=== PATIENT | male | born 1935 | race Caucasian/White ===

== ENCOUNTER 2018-05-08 05:41 | Inpatient (IN) | payer OTHER ==
[~2018-05-08] VITALS: Ht 177.8 cm; Wt 77.1 kg
[2018-05-08 05:41] VITALS: BP_SYST 190
[2018-05-08] MEDS ORDERED: NACL 0.9% 1,000 ML IV ONE (06:05)
[2018-05-08] MEDS ORDERED: cloNIDine HCL 0.1 MG TABLET PO ONE (07:00)
[2018-05-08 07:03] LABS: BASOPHILS # (AUTO) 0.3 K/uL (0.0-0.2); BASOPHILS % (AUTO) 3.2 % (0.0-2.0); EOSINOPHILS % (AUTO) 0.1 % (0.0-4.0); HEMATOCRIT 47.9 % (36-54); HEMOGLOBIN 15.9 g/dL (14.0-18.0); LYMPHOCYTES # (AUTO) 0.6 K/uL (1.0-5.5); LYMPHOCYTES % (AUTO) 6.8 % (20.5-51.5); MEAN CORPUSCULAR HEMOGLOBIN 32 pg (27-31); MEAN CORPUSCULAR HGB CONC 33 % (32-36); MEAN CORPUSCULAR VOLUME 97 fL (79.0-98.0); MONOCYTES # (AUTO) 0.5 K/uL (0.0-1.0); MONOCYTES % (AUTO) 6.2 % (1.7-9.3); NEUTROPHILS # (AUTO) 6.8 K/uL (1.8-7.7); NEUTROPHILS % (AUTO) 83.7 % (40.0-70.0); PLATELET COUNT (AUTO) 227 K/uL (130-430); RED BLOOD CELL COUNT(AUTO) 4.93 MIL/uL (4.2-6.2); RED CELL DISTRIBUTION WIDTH 15.1 % (9.0-15.0); WHITE BLOOD COUNT (AUTO) 8.2 K/uL (4.8-10.8)
[2018-05-08 07:12] LABS: ANION GAP 13 (5-15); CALCIUM 9.9 mg/dL (8.4-11.0); CHLORIDE 103 mmol/L (98-107); CREATININE 0.98 mg/dL (0.55-1.30); GLUCOSE 225 mg/dL (70-99); POTASSIUM 3.9 mmol/L (3.5-5.1); SODIUM SERUM 140 mmol/L (136-145); UREA NITROGEN, BLOOD 12 mg/dL (8-21)
[2018-05-08 07:17] LABS: ALANINE AMINOTRANSFERASE 34 U/L (12-78); ALBUMIN 3.8 g/dL (3.4-4.8); ALCOHOL, BLOOD 3 mg/dL (<10); ASPARTATE AMINOTRANSFERASE 29 U/L (10-37); LIPASE 141 U/L (73-393); PROTHROMBIN TIME 9.9 SECS (9.5-12.5); TOTAL BILIRUBIN 0.5 mg/dL (0.0-1.0)
[2018-05-08 10:16] VITALS: BP_SYST 166
[2018-05-08 12:02] VITALS: BP_SYST 143
[2018-05-08] MEDS ORDERED: GLUCOSE 15 GM GEL (in 37.5 GM TUBE) PO PRN ×2 (12:45)
[2018-05-08] MEDS ORDERED: DEXTROSE 50%-WATER 50 ML DISP.SYRIN IVP PRN ×2 (12:45)
[2018-05-08] MEDS ORDERED: ASPIRIN 81 MG TAB.CHEW PO ONE (13:15)
[2018-05-08 16:02] VITALS: BP_SYST 154
[2018-05-08] MEDS: INSULIN REGULAR, HUMAN 100 UNITS/ML, 10 ML VIAL (novoLIN R) SUBCUT PRN ×2 (17:43→20:52)
[2018-05-08] MEDS ORDERED: HYDR12.55 (18:41)
[2018-05-08] MEDS ORDERED: GABA-531 PO (18:41)
[2018-05-08] MEDS ORDERED: FINA5TAB3 PO (18:41)
[2018-05-08] MEDS ORDERED: EZET10TA27 PO (18:41)
[2018-05-08] MEDS ORDERED: METF500T7 PO (18:41)
[2018-05-08] MEDS ORDERED: SERT25TA PO (18:41)
[2018-05-08] MEDS ORDERED: DABI150C PO (18:41)
[2018-05-08] MEDS ORDERED: AMLO5TAB4 PO (18:41)
[2018-05-08] MEDS ORDERED: FOSI20TA4 PO (18:41)
[2018-05-08] MEDS ORDERED: SITA100T11 PO (18:41)
[2018-05-08] MEDS ORDERED: CARV25TA55 PO (18:41)
[2018-05-08] MEDS ORDERED: ATOR40TA68 PO (18:41)
[2018-05-08 19:00] VITALS: BP_SYST 161
[2018-05-08] MEDS ORDERED: THIAMINE HCL 100 MG TABLET GT ONE (19:15)
[2018-05-08 20:00] VITALS: BP_SYST 161
[2018-05-08] MEDS: CARVEDILOL 25 MG TABLET (COREG) PO SCH (20:46)
[2018-05-08] MEDS: EZETIMIBE 10 MG TABLET PO SCH (20:47)
[2018-05-08] MEDS: GABAPENTIN 300 MG CAPSULE PO SCH (20:47)
[2018-05-08] MEDS: ATORVASTATIN 20 MG TABLET PO SCH (20:47)
[2018-05-08] MEDS: DABIGATRAN ETEXILATE MESYLATE 75 MG CAPSULE PO SCH (20:48)
[2018-05-09] VITALS: BP_SYST 146
[2018-05-09] MEDS ORDERED: TEMAZEPAM 15 MG CAPSULE PO PRN (00:30)
[2018-05-09 08:30] VITALS: BP_SYST 133
[2018-05-09] MEDS: CARVEDILOL 25 MG TABLET (COREG) PO SCH ×2 (08:36→21:44)
[2018-05-09] MEDS: HYDROCHLOROTHIAZIDE 12.5 MG CAPSULE (HCTZ) PO SCH (08:36)
[2018-05-09] MEDS: DABIGATRAN ETEXILATE MESYLATE 75 MG CAPSULE PO SCH ×2 (08:36→21:47)
[2018-05-09] MEDS: FINASTERIDE 5 MG TABLET (PROSCAR) PO SCH (08:37)
[2018-05-09] MEDS: THIAMINE HCL 100 MG TABLET GT SCH (08:37)
[2018-05-09] MEDS: GABAPENTIN 300 MG CAPSULE PO SCH ×3 (08:37→21:44)
[2018-05-09] MEDS: LISINOPRIL 20 MG TABLET PO SCH (08:38)
[2018-05-09] MEDS: SERTRALINE HCL 50 MG TABLET PO SCH (08:38)
[2018-05-09] MEDS: amLODIPine BESYLATE 5 MG TABLET PO SCH (08:38)
[2018-05-09] MEDS ORDERED: NON-FORMULARY MEDICATION (Hydrochlorothiazide 12.5 MG) SCH (09:00)
[2018-05-09] MEDS: INSULIN REGULAR, HUMAN 100 UNITS/ML, 10 ML VIAL (novoLIN R) SUBCUT PRN ×2 (12:14→21:48)
[2018-05-09 12:15] VITALS: BP_SYST 125
[2018-05-09 17:38] VITALS: BP_SYST 107
[2018-05-09 19:52] VITALS: BP_SYST 132
[2018-05-09] MEDS: ATORVASTATIN 20 MG TABLET PO SCH (21:41)
[2018-05-09] MEDS: EZETIMIBE 10 MG TABLET PO SCH (21:44)
[2018-05-10] VITALS: BP_SYST 143
[2018-05-10 07:45] VITALS: BP_SYST 124
[2018-05-10] MEDS: GABAPENTIN 300 MG CAPSULE PO SCH ×3 (09:43→21:28)
[2018-05-10] MEDS: LISINOPRIL 20 MG TABLET PO SCH (09:43)
[2018-05-10] MEDS: HYDROCHLOROTHIAZIDE 12.5 MG CAPSULE (HCTZ) PO SCH (09:44)
[2018-05-10] MEDS: DABIGATRAN ETEXILATE MESYLATE 75 MG CAPSULE PO SCH ×2 (09:44→21:35)
[2018-05-10] MEDS: FINASTERIDE 5 MG TABLET (PROSCAR) PO SCH (09:44)
[2018-05-10] MEDS: CARVEDILOL 25 MG TABLET (COREG) PO SCH ×2 (09:46→21:27)
[2018-05-10] MEDS: amLODIPine BESYLATE 5 MG TABLET PO SCH (09:46)
[2018-05-10] MEDS: SERTRALINE HCL 50 MG TABLET PO SCH (09:46)
[2018-05-10] MEDS: THIAMINE HCL 100 MG TABLET GT SCH (09:47)
[2018-05-10 12:00] VITALS: BP_SYST 128
[2018-05-10] MEDS: INSULIN REGULAR, HUMAN 100 UNITS/ML, 10 ML VIAL (novoLIN R) SUBCUT PRN ×3 (12:04→21:33)
[2018-05-10 16:00] VITALS: BP_SYST 130
[2018-05-10 19:00] VITALS: BP_SYST 124
[2018-05-10 20:00] VITALS: BP_SYST 124
[2018-05-10] MEDS: ATORVASTATIN 20 MG TABLET PO SCH (21:27)
[2018-05-10] MEDS: EZETIMIBE 10 MG TABLET PO SCH (21:28)
[2018-05-11] VITALS: BP_SYST 122
[2018-05-11] MEDS ORDERED: ONDANSETRON HCL 4 MG/2 ML VIAL IM PRN (01:15)
[2018-05-11 08:00] VITALS: BP_SYST 146
[2018-05-11] MEDS: FINASTERIDE 5 MG TABLET (PROSCAR) PO SCH (08:58)
[2018-05-11] MEDS: HYDROCHLOROTHIAZIDE 12.5 MG CAPSULE (HCTZ) PO SCH (08:59)
[2018-05-11] MEDS: THIAMINE HCL 100 MG TABLET GT SCH (09:00)
[2018-05-11] MEDS: CARVEDILOL 25 MG TABLET (COREG) PO SCH (09:00)
[2018-05-11] MEDS: amLODIPine BESYLATE 5 MG TABLET PO SCH (09:01)
[2018-05-11] MEDS: GABAPENTIN 300 MG CAPSULE PO SCH ×2 (09:01→15:31)
[2018-05-11] MEDS: LISINOPRIL 20 MG TABLET PO SCH (09:01)
[2018-05-11] MEDS: SERTRALINE HCL 50 MG TABLET PO SCH (09:01)
[2018-05-11] MEDS: DABIGATRAN ETEXILATE MESYLATE 75 MG CAPSULE PO SCH (09:04)
[2018-05-11] MEDS: INSULIN REGULAR, HUMAN 100 UNITS/ML, 10 ML VIAL (novoLIN R) SUBCUT PRN ×2 (12:02→17:09)
[2018-05-11 16:00] VITALS: BP_SYST 119
[2018-05-11 16:03] VITALS: BP_SYST 119
== END 2018-05-11 18:30 | DRG 92 ==
LOC: SED 05:41 → STU 09:40
PROVIDERS: ADMIT Family Medicine; ATTEND Family Medicine
DX: G92 Toxic encephalopathy (principal); I67.4 Hypertensive encephalopathy; I10 Essential (primary) hypertension; E11.9 Type 2 diabetes mellitus without complications; M19.90 Unspecified osteoarthritis, unspecified site; Z95.2 Presence of prosthetic heart valve; Z95.0 Presence of cardiac pacemaker; Z82.49 Family history of ischemic heart disease and other diseases of the circulatory system
CPT/HCPCS: 36415; 70450-TC; 71045; 80053; 82550-TC; 82962; 83605; 83690-TC; 84484; 85025; 85610-TC; 85730-TC; 87040-TC; 93005; 95816; 97110-GP; 97116-GP; 97530-GP; 99285; G0378; G0482; J7030

== ENCOUNTER 2018-08-31 07:42 | Inpatient (IN) | payer OTHER ==
[~2018-08-31] VITALS: Ht 177.8 cm; Wt 79.4 kg
[2018-08-31] VITALS (13 sets, daily range): BP systolic 121–185
[~2018-08-31 07:42] MED LIST: AMLO5TAB4 PO; ATOR40TA68 PO; CARV25TA55 PO; DABI150C PO; EZET10TA27 PO; FINA5TAB3 PO; FOSI20TA98 PO; GABA-531 PO; HYDR12.55; METF500T7 PO; SERT25TA PO; SITA100T11 PO
--- NOTE | 2018-08-31 07:45 | NUR ---
Placed in room 6 . Placed on cardiac rehab nurse, blood pressure machine and pulse oximeter. To gown for exam. Side rails up. Report given to ARGENIS Patiño.
--- NOTE | 2018-08-31 07:45 | NUR ---
patient arrived AOx3-4 from home with adult children. patient c/o generalized weakness x 1 day. patient denies a reason for generalied weakness. adult child patient lives with states they moved to [facility] ages ago and the patient hasn't taken medication corrently the last few weeks. adult child is unware of which medication patient takes, when or how he is taking them. patient has a hx of dm, htn and past history of pacemaker and WI. Patient denies any other complaint or injury at this time. no other complaint or injury.
--- NOTE | 2018-08-31 08:00 | NUR ---
ER at bedside examining patient.
[2018-08-31 08:43] LABS: ANION GAP 17 (5-15); CALCIUM 9.6 mg/dL (8.4-11.0); CHLORIDE 100 mmol/L (98-107); CREATININE 1.25 mg/dL (0.55-1.30); GLUCOSE 213 mg/dL (70-99); POTASSIUM 3.5 mmol/L (3.5-5.1); SODIUM SERUM 138 mmol/L (136-145); UREA NITROGEN, BLOOD 15 mg/dL (8-21)
[2018-08-31 08:44] LABS: BASOPHILS # (AUTO) 0.1 K/uL (0.0-0.2); BASOPHILS % (AUTO) 0.9 % (0.0-2.0); EOSINOPHILS % (AUTO) 0.3 % (0.0-4.0); HEMATOCRIT 45.3 % (36-54); HEMOGLOBIN 15.2 g/dL (14.0-18.0); LYMPHOCYTES # (AUTO) 1.2 K/uL (1.0-5.5); LYMPHOCYTES % (AUTO) 19.3 % (20.5-51.5); MEAN CORPUSCULAR HEMOGLOBIN 33 pg (27-31); MEAN CORPUSCULAR HGB CONC 34 % (32-36); MEAN CORPUSCULAR VOLUME 99 fL (79.0-98.0); MONOCYTES # (AUTO) 0.6 K/uL (0.0-1.0); MONOCYTES % (AUTO) 9.8 % (1.7-9.3); NEUTROPHILS # (AUTO) 4.4 K/uL (1.8-7.7); NEUTROPHILS % (AUTO) 69.7 % (40.0-70.0); PLATELET COUNT (AUTO) 161 K/uL (130-430); RED BLOOD CELL COUNT(AUTO) 4.57 MIL/uL (4.2-6.2); RED CELL DISTRIBUTION WIDTH 14.9 % (9.0-15.0); WHITE BLOOD COUNT (AUTO) 6.3 K/uL (4.8-10.8)
[2018-08-31 08:45] LABS: PROTHROMBIN TIME 10.2 SECS (9.5-12.5)
[2018-08-31] MEDS ORDERED: NACL 0.9% 1,000 ML IV ONE ×2 (08:45→10:00)
[2018-08-31 08:56] LABS: ALANINE AMINOTRANSFERASE 35 U/L (12-78); ALBUMIN 3.3 g/dL (3.4-4.8); ASPARTATE AMINOTRANSFERASE 29 U/L (10-37); TOTAL BILIRUBIN 1.6 mg/dL (0.0-1.0)
[2018-08-31 09:17] LABS: BILIRUBIN,URINE 2+ (NEGATIVE); BLOOD, URINE 3+ (NEGATIVE); COLOR,URINE YELLOW (YELLOW); GLUCOSE,URINE TRACE (NEGATIVE); KETONES,URINE 1+ (NEGATIVE); LEUKOCYTE ESTERASE ,URINE NEGATIVE (NEGATIVE); NITRITE, URINE NEGATIVE (NEGATIVE); PH,URINE 5.5 (5.0-8.0); PROTEIN URINE 3+ (NEGATIVE)
[2018-08-31 09:18] LABS: CLARITY/URINE HAZY (CLEAR)
--- NOTE | 2018-08-31 09:25 | NUR ---
Medication reconciliation completed with information provided by Family member. Any prior medication reconciliation on file was reviewed and corrected.
[2018-08-31 09:29] LABS: BACTERIA,URINE FEW /HPF (None Seen); MUCUS,URINE 1+ /LPF (None Seen); URINE AMORPHOUS URATE 2+ /HPF (None Seen); WBC,URINE 0-3 /HPF (0-3)
[2018-08-31] MEDS ORDERED: cefTRIAXone 1 GM IVPB PREMIX 50 ML IV ONE (09:45)
--- NOTE | 2018-08-31 10:54 | NUR ---
attempted to get consent for contrast, sent to voicemail. will endorce to floor nurse.
--- NOTE | 2018-08-31 10:59 | NUR ---
consent provided over the phone.
--- NOTE | 2018-08-31 11:00 | NUR ---
patient sent to CT for CTA scan.
[2018-08-31] MEDS ORDERED: VANCOMYCIN HCL 1,000 MG in NS 250 ML IV ONE (11:15)
--- NOTE | 2018-08-31 11:30 | NUR ---
patient returned from CTA in stable condition.
[2018-08-31] MEDS ORDERED: amLODIPine BESYLATE 5 MG TABLET PO ONE (12:00)
[2018-08-31] MEDS ORDERED: DOCUSATE SODIUM 100 MG CAPSULE PO ONE (12:00)
[2018-08-31] MEDS ORDERED: NITROGLYCERIN 0.4 MG TAB.SUBL SL ONE (12:00)
[2018-08-31] MEDS ORDERED: ACETAMINOPHEN 325 MG TABLET PO PRN (12:00)
--- NOTE | 2018-08-31 12:00 | NUR ---
Patient will be admitted to [facility]. Admitted to ICU unit. Will go to room 4. Belongings list completed. Summary report printed. Report will be given at bedside.
[2018-08-31] MEDS ORDERED: VANCOMYCIN HCL 1000 MG/VIAL IV ONE (12:34)
--- NOTE | 2018-08-31 12:45 | NUR ---
RECEIVED PT IN ICU 4 RECEIVED SBAR REPORT AT BEDSIDE FROM ENDORSING ER NURSE. PT AWAKE, ALERT AND ORIENTED WITH NO COMPLAINT OF PAIN OR SOB. PT IS COOPERATIVE BY A SOMEWHAT POOR HISTORIAN, SLIGHT CONFUSION OBSERVED. 2 BED RAILS UP, CALL LIGHT WITHIN REACH.
[2018-08-31] MEDS ORDERED: NITROGLYCERIN 0.4 MG TAB.SUBL SL PRN (13:15)
--- NOTE | 2018-08-31 14:15 | NUR ---
CONSULT: DR. ALEX CARDIOLOGY EXCHANGE CALLED FOR CONSULT, DR. CAZARES IS COVERING FOR DR. ALEX. SPOKE TO ANABELLE (EXCHANGE)
[2018-08-31] MEDS ORDERED: cloNIDine HCL 0.1 MG TABLET PO PRN (15:00)
--- NOTE | 2018-08-31 15:16 | NUR ---
CARDIO CONSULT CONFIRMED DR. CAZARES RETURNED CALL AND ACCEPTED PATIENT. NEW ORDERS RECEIVED.
--- NOTE | 2018-08-31 15:30 | NUR ---
DR. JESSICA AT BEDSIDE NEW ORDERS RECEIVED.
--- NOTE | 2018-08-31 17:45 | NUR ---
DR. CAZARES AT BEDSIDE NEW ORDERS RECEIVED
[2018-08-31] MEDS ORDERED: metFORMIN HCL 500 MG TABLET PO SCH (18:00)
[2018-08-31] MEDS ORDERED: ASPIRIN 81 MG TABLET(ECOTRIN) PO SCH (18:30)
--- NOTE | 2018-08-31 19:25 | NUR ---
ENDORSEMENT SBAR REPORT ENDORSED TO RECEIVING RN AT BEDSIDE.
--- NOTE | 2018-08-31 19:30 | NUR ---
PERSONNEL FROM [facility] CAME TO CHECK ON PACEMAKER AND PRINT SOME HISTORY. [employer] TALKED TO DR CAZARES AND REPORTED HIS FINDINGS.
--- NOTE | 2018-08-31 20:00 | NUR ---
AWAKE, ALERT, ORIENTED X3. IN NO APPARENT DISTRESS. DENIES PAIN. ON ROOM AIR. BREATH SOUNDS ESSENTIALLY CLEAR. BOWEL SOUNDS(+). PULSES PALPABLE. SKIN W/D. COLOR SATISFACTORY. HOB UP TO COMFORT. SIDE RAILS UP. CALL LIGHTS WITHIN REACH. DUAL CHAMBER PACEMAKER NOTED.
[2018-08-31] MEDS: CARVEDILOL 6.25 MG TABLET (COREG) PO SCH (20:40)
[2018-08-31] MEDS: TEMAZEPAM 15 MG CAPSULE PO PRN (20:40)
--- NOTE | 2018-08-31 20:40 | NUR ---
RESTORIL 15 MG PO GIVEN FOR SLEEP PER PT REQUEST.
[2018-08-31] MEDS: DABIGATRAN ETEXILATE MESYLATE 75 MG CAPSULE PO SCH (21:00)
--- NOTE | 2018-08-31 21:00 | NUR ---
ABLE TO SWALLOW WITHOUT DIFFICULTY. VOIDED URINE A WHILE AGO, UNABLE TO MEASURE.
[2018-08-31] MEDS ORDERED: DABIGATRAN ETEXILATE MESYLATE 75 MG CAPSULE PO ONE (21:06)
[2018-09-01] VITALS (19 sets, daily range): BP systolic 85–153
--- NOTE | 2018-09-01 | NUR ---
AWAKE. SLEPT FOR SHORT PERIODS OF TIME. VOIDED 200 CC CLEAR JORDEN URINE VIA URINAL. INQUISITIVE. QUESTIONS ANSWERED. CONVERSANT.
--- NOTE | 2018-09-01 02:00 | NUR ---
SOUNDLY ASLEEP. NO DISTRESS NOTED. ABLE TO REPOSITION SELF WELL.
--- NOTE | 2018-09-01 04:00 | NUR ---
SLEPT INTERMITTENTLY. 0 DISTRESS.
[2018-09-01 04:46] LABS: BASOPHILS % (AUTO) 0.9 % (0.0-2.0); EOSINOPHILS # (AUTO) 0.1 K/uL (0.0-0.4); EOSINOPHILS % (AUTO) 1.5 % (0.0-4.0); HEMOGLOBIN 14.2 g/dL (14.0-18.0); LYMPHOCYTES # (AUTO) 0.8 K/uL (1.0-5.5); LYMPHOCYTES % (AUTO) 17.1 % (20.5-51.5); MEAN CORPUSCULAR HEMOGLOBIN 33 pg (27-31); MEAN CORPUSCULAR HGB CONC 34 % (32-36); MEAN CORPUSCULAR VOLUME 99 fL (79.0-98.0); MONOCYTES # (AUTO) 0.6 K/uL (0.0-1.0); NEUTROPHILS # (AUTO) 3.1 K/uL (1.8-7.7); NEUTROPHILS % (AUTO) 68.5 % (40.0-70.0); PLATELET COUNT (AUTO) 134 K/uL (130-430); RED BLOOD CELL COUNT(AUTO) 4.25 MIL/uL (4.2-6.2); RED CELL DISTRIBUTION WIDTH 14.8 % (9.0-15.0); WHITE BLOOD COUNT (AUTO) 4.6 K/uL (4.8-10.8)
[2018-09-01 05:05] LABS: ALANINE AMINOTRANSFERASE 33 U/L (12-78); ALBUMIN 2.7 g/dL (3.4-4.8); ANION GAP 11 (5-15); ASPARTATE AMINOTRANSFERASE 27 U/L (10-37); CALCIUM 8.8 mg/dL (8.4-11.0); CHLORIDE 100 mmol/L (98-107); CREATININE 0.87 mg/dL (0.55-1.30); GLUCOSE 168 mg/dL (70-99); POTASSIUM 3.4 mmol/L (3.5-5.1); SODIUM SERUM 134 mmol/L (136-145); TOTAL BILIRUBIN 1.2 mg/dL (0.0-1.0); UREA NITROGEN, BLOOD 13 mg/dL (8-21)
--- NOTE | 2018-09-01 06:00 | NUR ---
AWAKE. NO COMPLAINTS OFFERED AT THIS TIME. REMAINS IN GUARDED CONDITION.
--- NOTE | 2018-09-01 07:15 | NUR ---
Opening Note Received plan of care via sbar from endorsing nurse Maxwell RN. Made pt round.
[2018-09-01] MEDS: ATORVASTATIN 20 MG TABLET PO SCH (08:30)
--- NOTE | 2018-09-01 08:30 | NUR ---
Called Dr. Foley and left message with exchange regarding pt orders. Awaiting return call.
[2018-09-01] MEDS: DOCUSATE SODIUM 100 MG CAPSULE PO SCH (08:31)
[2018-09-01] MEDS: CARVEDILOL 6.25 MG TABLET (COREG) PO SCH ×2 (08:32→21:30)
[2018-09-01] MEDS: SERTRALINE HCL 50 MG TABLET PO SCH (08:32)
[2018-09-01] MEDS: amLODIPine BESYLATE 5 MG TABLET PO SCH (08:32)
[2018-09-01] MEDS: FINASTERIDE 5 MG TABLET (PROSCAR) PO SCH (09:17)
[2018-09-01] MEDS: DABIGATRAN ETEXILATE MESYLATE 75 MG CAPSULE PO SCH ×2 (09:18→21:30)
--- NOTE | 2018-09-01 10:15 | NUR ---
Completed CHG and linen change with patient with pt assistance. PT tolerated well without any complications or complaints.
[2018-09-01] MEDS ORDERED: POTASSIUM CHLORIDE 10 MEQ TAB.PRT.SR PO ONE (11:45)
[2018-09-01] MEDS: INSULIN REGULAR, HUMAN 100 UNITS/ML, 10 ML VIAL (novoLIN R) SUBCUT PRN (12:01)
--- NOTE | 2018-09-01 14:26 | NUR ---
Received MD order to downgrade pt to MST. Will provide continuous care until bed opens.
--- NOTE | 2018-09-01 16:00 | NUR ---
Transfer Note Gave plan of care to endorsing nurse Fidencio RN via sbar.
--- NOTE | 2018-09-01 16:12 | NUR ---
RN RECEIVING NOTE PATIENT WAS RECEIVED FROM ICU, PATIENT WAS ASSESSED, VITAL SIGNS ARE STABLE. PATIENT DENIES PAIN OR DISCOMFORT. PATIENT IS NONE TELE. BED AT LOW POSITION AND CALL LIGHT WITHIN REACH WILL CONTINUE TO MONITOR.
--- NOTE | 2018-09-01 18:30 | NUR ---
RN CLOSING NOTE PATIENT WAS TRANSFERED TO ANOTHER ROOM PER HIS REQUEST. PATIENT DENIES PAIN OR DISCOMFORT. PATIENT WAS SERVED HIS DINNER, BED AT LOW POSITION AND CALL LIGHT WITHIN REACH, WILL ENDORSE TO NEXT SHIFT.
--- NOTE | 2018-09-01 19:00 | NUR ---
change of shift.pt.transfer from icu unit.pt.presents quiescent affect;calm.pt.presents general status stable.respiratory status sstabl;e;@room air,.ileana;rn has apprised me and demonstrated the rt.foot;wound;involvement;1-2nd metatarsals ecchymosis.pt.presents iv acces;x2 locations.call light/telephone w/in the reach of the pt.
--- NOTE | 2018-09-01 20:00 | NUR ---
pt.assessed.v/s assessed;values w/in normal limits.pt.presents loc;confused.pt.presents garble;inappropriate speech/ answers to q's.pt.presents activity status;bedrest.pt.presents incontinent status;bladder/bowel.scd's applied.bilateral. i have apprised the pt.that snacks/beverages are available w/in the shift.pt.presents no requests@this hour.per flacc: pain mgx;pt.absent facial grimaces/body posturing.pt.assessed for cleanliness.pt.repositioned.call light/telephone placed w/in the reach of the pt.
--- NOTE | 2018-09-01 20:30 | NUR ---
i have assessed the blood glucose;144mg/dl value.
--- NOTE | 2018-09-01 21:00 | NUR ---
2100p medication administered.
[2018-09-01] MEDS: TEMAZEPAM 15 MG CAPSULE PO PRN (21:31)
--- NOTE | 2018-09-01 22:00 | NUR ---
py.assessed.pt.assessed for cleanliness.pt.repositioned.pt.presents quiescent affect;calm,somnolent.flacc method utilized; pain mgx. pt.absent facial grimaces/body posturing.no requests presented@this hour.general status stable.respiratory status stable. call light/telephone placed w/in the reach of the pt.s
--- NOTE | 2018-09-02 | NUR ---
pt.assessed.v/s assessed;values w/in normal limits.pt.assessed for cleanliness.pt.repositioned.no c/o pain,nausea. general status stable.respiratory status stable.call light/telephone placed w/in the reach of the pt.
[2018-09-02 01:45] VITALS: BP_SYST 132
--- NOTE | 2018-09-02 03:00 | NUR ---
the pt.presents ecchymosis;rt.foot;1-2nd metatarsals.antonietta salinas;leila has assisted w/the photographs. sacrum//buttocks assessed.back assessed absent wounds.lt.foot assessed absent skin integrity intact.
--- NOTE | 2018-09-02 04:00 | NUR ---
pt.assessed.pt.presents quiescent affect;calm,somnolent.pt.assessed for cleanliness.pt.cleaned.general status stable. respiratory status stable.call light/telephone placed w/in the reach of the pt.
[2018-09-02] MEDS: INSULIN REGULAR, HUMAN 100 UNITS/ML, 10 ML VIAL (novoLIN R) SUBCUT PRN ×3 (06:30→22:19)
--- NOTE | 2018-09-02 06:45 | NUR ---
pt.assessed.i have assisted the pt.w/the urinal.i have assessed the blood glucose:189mg/dl. i have administered regular insulin;2-units.pt.assessed for cleanliness.pt.repositioned.call light/ telephone paced w/in then reach of the pt.
--- NOTE | 2018-09-02 06:58 | NUR ---
Nutrition Update Miguelito Scale 14 noted. Pt admitted for chest pain, rule out angina vs myocardial infarction Diet: cardiac low CHOL low fat 2gm Na BMI: 25.1 kg/m2 RD to follow per nutrition care standards.
[2018-09-02 07:28] LABS: ANION GAP 21 (5-15); CALCIUM 9.7 mg/dL (8.4-11.0); CHLORIDE 102 mmol/L (98-107); CREATININE 0.99 mg/dL (0.55-1.30); GLUCOSE 165 mg/dL (70-99); POTASSIUM 3.8 mmol/L (3.5-5.1); SODIUM SERUM 138 mmol/L (136-145); UREA NITROGEN, BLOOD 20 mg/dL (8-21)
[2018-09-02 08:00] VITALS: BP_SYST 130
--- NOTE | 2018-09-02 08:00 | NUR ---
AWAKE BUT CONFUSED. IN NO APPARENT DISTRESS. ON ROOM AIR. IV ON LEFT FA AND RIGHT RIGHT WRIST, #22, SL. PACEMAKER NOTED ON THE LEFT UPPER CHEST. SIDE RAILS UP. CALL LIGHTS WITHIN REACH, BED LOCKED AT THE LOWEST POSITION.
[2018-09-02] MEDS: ATORVASTATIN 20 MG TABLET PO SCH (08:36)
[2018-09-02] MEDS: FINASTERIDE 5 MG TABLET (PROSCAR) PO SCH (08:36)
[2018-09-02] MEDS: SERTRALINE HCL 50 MG TABLET PO SCH (08:37)
[2018-09-02] MEDS: DABIGATRAN ETEXILATE MESYLATE 75 MG CAPSULE PO SCH ×2 (08:37→22:08)
[2018-09-02] MEDS: POTASSIUM CHLORIDE 10 MEQ TAB.PRT.SR PO SCH (08:38)
[2018-09-02] MEDS: DOCUSATE SODIUM 100 MG CAPSULE PO SCH (08:38)
[2018-09-02] MEDS: amLODIPine BESYLATE 5 MG TABLET PO SCH (08:41)
[2018-09-02] MEDS: CARVEDILOL 6.25 MG TABLET (COREG) PO SCH ×2 (08:50→22:09)
--- NOTE | 2018-09-02 10:42 | NUR ---
Pt note Attempted to have patient participate with therapy, patient refusing stating "I'm going home today", nursing made aware.
--- NOTE | 2018-09-02 12:25 | NUR ---
Wound Evaluation: Late note for 1225 secondary to patient care. Wound Consult ordered for Low Miguelito Score. Patient evaluated for a low Miguelito score of 14. Patient was awake, alert, confused, and received in a Sims Bed with an IsoFlex CURLY mattress. Patient needs assist to turn in bed. Skin is intact. Recommend encourage and assist patient as needed with repositioning every 2 hours with pillow support. Elevate, off-load and float bilateral heels with pillows. Offload pressure areas with pillows for pressure re-distribution. Perform skin care and monitor skin integrity Q shift. Use moisture barrier cream on moisture susceptible areas QID and PRN for soiling. Patient said that he had bumped his foot on something. Skin assessment: 1. Right Foot: A) Great Toe: Area of purple discoloration, present on admission. Sites has purple discoloration that goes from Dorsal aspect of Toe to Plantar aspect of Toe. No odor, no drainage. Foot and extremity feel warm to the touch (same as rest of body). B) Second Toe: Area of purple discoloration, present on admission. Sites has purple discoloration that goes from Dorsal aspect of Toe to Plantar aspect of Toe. No odor, no drainage. Foot and extremity feel warm to the touch (same as rest of body). C) Third Toe: Area of purple discoloration, present on admission. Sites has purple discoloration on the Dorsal aspect of Toe. No odor, no drainage. Foot and extremity feel warm to the touch (same as rest of body). Recommend: No dressings needed. Continue to monitor sites q shift for worsening condition.
[2018-09-02 12:45] VITALS: BP_SYST 114
--- NOTE | 2018-09-02 13:13 | NUR ---
Dietitian Recommendations *Recommend adding CCHO to current diet order. *If by next RD visit, PO intake remains <50%, consider adding ONS Glucerna to diet. Please see Nutritional Assessment for details. RESIDENTIAL, RD
[2018-09-02] MEDS ORDERED: LORazepam 2 MG/ML VIAL IVP PRN (13:45)
[2018-09-02] MEDS: chlordiazePOXIDE HCL 25 MG CAPSULE PO SCH ×2 (13:59→22:08)
--- NOTE | 2018-09-02 14:00 | NUR ---
DR. JESSICA IS AT BEDSIDE ASSESSING PATIENT. RN GAVE REPORT ABOUT CURRENT MENTAL STATUS OF THE PATIENT TO DR. JESSICA. ORDERS WERE GIVEN. WILL CONTINUE TO MONITOR.
--- NOTE | 2018-09-02 14:11 | NUR ---
Discharge Planning: DCP sent eval request to Mookie Guzman (f [phone] p [phone]); DCP to follow up. Addendum: 09/02/18 at 1513 by Sadie Roper DP Swati came to visit patient stated patient appeared confused, left message for sonStephy Longoria stated she informed pt he must do PT. Addendum: 09/03/18 at 1146 by Sadie Roper DP CORRECTION---------APURVA wearing apparel folder was Liya Longoria
--- NOTE | 2018-09-02 14:27 | NUR ---
CONSULTATION CALLED FOR THOMAS SWARTZ FOR CONSULT OF CONFUSION ORDER BY Regla BERMAN SPOKE WITH HALI
[2018-09-02 16:50] VITALS: BP_SYST 128
--- NOTE | 2018-09-02 16:55 | NUR ---
DR. AGUERO CALLS IN; HE IS INFORMED OF PATIENT'S CURRENT SITUATION, AND HE STATES HE WILL COME TOMORROW.
--- NOTE | 2018-09-02 18:03 | NUR ---
PATIENT'S BLOOD SUGAR 97. NO COVERAGE NEEDED.
--- NOTE | 2018-09-02 19:16 | NUR ---
OPENING NOTE Received report from Mumtaz. Patient resting in bed with eyes closed. Breathing unlabored and even on room air. No signs of distress, no needs at this time. Fall and safety precautions in place. Bed in lowest position, brake on, alarm on, call light within reach. SCDs on. Will continue to monitor.
--- NOTE | 2018-09-02 19:43 | NUR ---
PATIENT PULLS OUT HIS IV, AND PATIENT IS BLEEDING AT THE HAND. PRESSURE IS APPLIED AT THE FORMER IV SITE.
[2018-09-02 20:00] VITALS: BP_SYST 135
--- NOTE | 2018-09-02 21:09 | NUR ---
Patient resting in bed with eyes closed. Breathing unlabored and even on room air. No signs of distress, no needs at this time. Fall and safety precautions in place. Bed in lowest position, brake on, alarm on, call light within reach. SCDs on. Will continue to monitor.
--- NOTE | 2018-09-02 22:21 | NUR ---
Med pass. Blood sugar 172. Administered 2 units of insulin per PRN insulin protocol.
[2018-09-03 00:28] VITALS: BP_SYST 99
--- NOTE | 2018-09-03 04:30 | NUR ---
Patient awake in bed. A/o x2. Gave patient urinal to use.
[2018-09-03 05:07] LABS: FOLATE (FOLIC ACID) 18.3 ng/mL (>3.0)
[2018-09-03] MEDS: INSULIN REGULAR, HUMAN 100 UNITS/ML, 10 ML VIAL (novoLIN R) SUBCUT PRN ×2 (06:05→11:25)
--- NOTE | 2018-09-03 06:06 | NUR ---
Blood sugar: 143. No insulin coverage needed at this time.
--- NOTE | 2018-09-03 07:15 | NUR ---
CLOSING NOTE Gave report to Pippa. Patient resting in bed. Breathing unlabored and even on room air. No signs of distress, no needs at this time. Fall and safety precautions in place. Bed in lowest position, brake on, alarm on, call light within reach. SCDs on. Endorsed cares to day shift nurse.
--- NOTE | 2018-09-03 07:55 | NUR ---
Neuro/Mobility Patient alert oriented x2 slept well as verbalized with shaking af the arms , attempt to get out of bed to bedside commode , weak very unstable unable to get out of bed , to edge of the bed with assist , high fall risk anticipate needs , morning care given, safety/fall precaution initiated.
[2018-09-03 07:58] VITALS: BP_SYST 136
[2018-09-03] MEDS: POTASSIUM CHLORIDE 10 MEQ TAB.PRT.SR PO SCH (08:08)
[2018-09-03] MEDS: DOCUSATE SODIUM 100 MG CAPSULE PO SCH (08:08)
[2018-09-03] MEDS: CARVEDILOL 6.25 MG TABLET (COREG) PO SCH (08:08)
[2018-09-03] MEDS: chlordiazePOXIDE HCL 25 MG CAPSULE PO SCH ×2 (08:08→14:33)
[2018-09-03] MEDS: amLODIPine BESYLATE 5 MG TABLET PO SCH (08:09)
[2018-09-03] MEDS: SERTRALINE HCL 50 MG TABLET PO SCH (08:09)
[2018-09-03] MEDS: ATORVASTATIN 20 MG TABLET PO SCH (08:09)
[2018-09-03] MEDS: FINASTERIDE 5 MG TABLET (PROSCAR) PO SCH (08:09)
[2018-09-03] MEDS: DABIGATRAN ETEXILATE MESYLATE 75 MG CAPSULE PO SCH (08:10)
--- NOTE | 2018-09-03 10:00 | NUR ---
Mobility With physical therapy able to stand with help , few steps to side to bedside commode unsteady gait, weak, fall risk.
--- NOTE | 2018-09-03 11:46 | NUR ---
Discharge Planning: DCP faxed updated PT notes to Natchezjose Landryna (f [phone] p [phone]) MALISSA trevino on [phone]. Addendum: 09/03/18 at 1330 by Sadie Roper DP Mookie Guzman (f [phone] p [phone]) accepted room 1236A number to report [phone] Addendum: 09/03/18 at 1344 by Sadie Roper DP Mookie Guzman (f [phone] p [phone]) accepted room 1236A # to report [phone], [facility] ([phone]) 5:00pm P/U. Nurse made aware packet taken to nurse station.
[2018-09-03 12:39] VITALS: BP_SYST 105
--- NOTE | 2018-09-03 13:05 | NUR ---
Seen and examined by DR. Foley for discharge to [facility] for continues care/rehab
--- NOTE | 2018-09-03 13:47 | NUR ---
Spoke to Singh Ash son of the patient informed regarding order to transfer to [facility] for continue care/rehab and agreed patient is aware
--- NOTE | 2018-09-03 13:48 | NUR ---
Neuro Patient is more awake/alert but still with shaking of the hands .
[2018-09-03 14:08] VITALS: BP_SYST 109
--- NOTE | 2018-09-03 14:51 | NUR ---
Report given to [facility] nurse with all the information , medication to add Metformin 500 mg po BID , januvia 100 mg po daily and highlighted in the paper works ., last picker time 5 pm.
[2018-09-03 16:34] VITALS: BP_SYST 110
--- NOTE | 2018-09-03 16:59 | NUR ---
To [facility] via [facility] , all belongings endorsed clothes, eyeglass with patient, cell phone inside the blue bag, patient is aware , alert/oriented x2 vitals sign stable.
[2018-09-03] MEDS ORDERED: PRIMIDONE 50 MG TABLET PO SCH (21:00)
== END 2018-09-03 17:10 | DRG 92 ==
LOC: SED 07:42 → SIC 11:48 → STU 09-01 16:46 → SMU 09-01 17:47
PROVIDERS: ADMIT Family Medicine; ATTEND Family Medicine
PROC: 4B02XSZ Measurement of Cardiac Pacemaker, External Approach (ICD-10-PCS; principal; 2018-08-31)
PROC: 3E02340 Introduction of Influenza Vaccine into Muscle, Percutaneous Approach (ICD-10-PCS; 2018-09-01)
DX: G92 Toxic encephalopathy (principal); I47.1 Supraventricular tachycardia; G25.0 Essential tremor; R53.1 Weakness; R07.89 Other chest pain; I48.0 Paroxysmal atrial fibrillation; E11.9 Type 2 diabetes mellitus without complications; R79.1 Abnormal coagulation profile; E11.40 Type 2 diabetes mellitus with diabetic neuropathy, unspecified; I11.9 Hypertensive heart disease without heart failure; E53.8 Deficiency of other specified B group vitamins; R44.1 Visual hallucinations; I25.10 Atherosclerotic heart disease of native coronary artery without angina pectoris; R79.82 Elevated C-reactive protein (CRP); I48.2 Chronic atrial fibrillation; R41.82 Altered mental status, unspecified; Z95.0 Presence of cardiac pacemaker; I25.2 Old myocardial infarction; Z79.899 Other long term (current) drug therapy; Z79.84 Long term (current) use of oral hypoglycemic drugs; Z23 Encounter for immunization
CPT/HCPCS: 36415; 70450-TC; 71045; 80048; 80053; 81000-TC; 82550-TC; 82607; 82746; 82962; 83036; 83605; 83880; 84443-TC; 84484; 85025; 85379; 85610-TC; 86140; 86710; 87040-TC; 87081; 90656; 93005; 93306; 93970; 96361; 96365; 96366; 96367; 97116-GP; 97163; 97530-GP; 99285; J0696; J1815; J2060; J3370

== ENCOUNTER 2019-10-20 23:06 | Emergency (ER) | payer OTHER, SELFPAY ==
[~2019-10-20] VITALS: Ht 180.3 cm; Wt 79.4 kg
[~2019-10-20 23:06] MED LIST changes: -EZET10TA27 PO; +EZET10TA30 PO; +METF500T20 PO; -METF500T7 PO
[2019-10-20 23:21] VITALS: BP_SYST 153
--- NOTE | 2019-10-20 23:24 | NUR ---
Patient to ER bed 5 to gown for evaluation. Side rails up. Report given to Dave MORE.
--- NOTE | 2019-10-20 23:29 | NUR ---
PT IN [facility], DENIES SEVERE PAIN, C/O RECTAL BLEED, C/O CONSTIPATION BUT HAD A BOWEL MOVEMENT TODAY.
--- NOTE | 2019-10-21 | NUR ---
ER at bedside examining patient.
[2019-10-21] MEDS ORDERED: NACL 0.9% 1,000 ML IV ONE (00:07)
[2019-10-21 01:33] LABS: BASOPHILS # (AUTO) 0.1 K/uL (0.0-0.2); BASOPHILS % (AUTO) 1.2 % (0.0-2.0); EOSINOPHILS % (AUTO) 0.5 % (0.0-4.0); HEMATOCRIT 47.1 % (36-54); HEMOGLOBIN 16.1 g/dL (14.0-18.0); LYMPHOCYTES # (AUTO) 1.1 K/uL (1.0-5.5); LYMPHOCYTES % (AUTO) 11.3 % (20.5-51.5); MEAN CORPUSCULAR HEMOGLOBIN 34 pg (27-31); MEAN CORPUSCULAR HGB CONC 34 % (32-36); MEAN CORPUSCULAR VOLUME 99 fL (79.0-98.0); MONOCYTES # (AUTO) 0.8 K/uL (0.0-1.0); MONOCYTES % (AUTO) 8.2 % (1.7-9.3); NEUTROPHILS # (AUTO) 7.4 K/uL (1.8-7.7); NEUTROPHILS % (AUTO) 78.8 % (40.0-70.0); PLATELET COUNT (AUTO) 218 K/uL (130-430); RED BLOOD CELL COUNT(AUTO) 4.77 MIL/uL (4.2-6.2); RED CELL DISTRIBUTION WIDTH 13.8 % (9.0-15.0); WHITE BLOOD COUNT (AUTO) 9.3 K/uL (4.8-10.8)
[2019-10-21 01:42] LABS: ANION GAP 15 (5-15); CALCIUM 8.9 mg/dL (8.4-11.0); CHLORIDE 97 mmol/L (98-107); CREATININE 1.19 mg/dL (0.55-1.30); GLUCOSE 176 mg/dL (70-99); SODIUM SERUM 133 mmol/L (136-145); UREA NITROGEN, BLOOD 18 mg/dL (8-21)
[2019-10-21 01:48] LABS: ALANINE AMINOTRANSFERASE 37 U/L (12-78); ALBUMIN 3.1 g/dL (3.4-4.8); ASPARTATE AMINOTRANSFERASE 25 U/L (10-37)
[2019-10-21 02:16] LABS: INR 1.1 (0.80-1.20); PROTHROMBIN TIME 10.7 SECS (9.5-12.5)
--- NOTE | 2019-10-21 02:24 | NUR ---
Patient given written and verbal discharge instructions and verbalizes understanding. ER MD TIDWELL discussed with patient the results and treatment provided. Patient in stable condition. ID arm band removed. IV catheter removed intact and dressing applied, no active bleeding. Patient educated on pain management and to follow up with PMD. Pain Scale 0/10. Opportunity for questions provided and answered. Medication side effect fact sheet provided.
[2019-10-21 02:28] VITALS: BP_SYST 153
[2019-10-21 05:38] LABS: BILIRUBIN,URINE NEGATIVE (NEGATIVE); BLOOD, URINE NEGATIVE (NEGATIVE); CLARITY/URINE CLEAR (CLEAR); COLOR,URINE YELLOW (YELLOW); GLUCOSE,URINE TRACE (NEGATIVE); KETONES,URINE TRACE (NEGATIVE); LEUKOCYTE ESTERASE ,URINE NEGATIVE (NEGATIVE); NITRITE, URINE NEGATIVE (NEGATIVE); PROTEIN URINE TRACE (NEGATIVE)
== END 2019-10-21 02:26 | disposition home or self-care (01) ==
LOC: SED 23:06
DX: R19.7 Diarrhea, unspecified (principal); K92.1 Melena; I10 Essential (primary) hypertension; E11.9 Type 2 diabetes mellitus without complications
CPT/HCPCS: 36415; 71045; 80053; 81003; 82272; 85025; 85610; 85730; 93005; 96360; 99285; J7030